=== PATIENT | male | born 1995 | race Caucasian/White ===

== ENCOUNTER → 2020-03-31 | Outpatient (CLI) | payer OTHER ==
--- NOTE | 2020-03-31 11:41 | Pulmonary Function Test ---
Pulmonary Function Test Date of Procedure:: 03/31/20 - Received 03/31/2020 INDICATION:: Dyspnea Referring Provider: Sharlene Christian M.D. Ruffling Machine Operator: Keely Chua APPLICATION SYSTEMS ADMINISTRATOR, DEALER ACCOUNT MANAGER - Report Spirometry: Spirometry: pre-FVC: 7.34 L 127% pre-FEV:1 5.29 L 106% pre-FEV1/FVC %: 72 predicted: 84 [id number]%: 4.02 L 72% Impression: Minimal obstructive ventilatory defect. Mild small airways disease is noted.
== END ==
LOC: RT 08:08
PROVIDERS: ATTEND Student in an Organized Health Care Education/Training Program
DX: J45.909 Unspecified asthma, uncomplicated (principal); R06.00 Dyspnea, unspecified
CPT/HCPCS: 94010